=== PATIENT | female | born 1980 | race Caucasian/White ===

== ENCOUNTER 2018-11-29 10:33 | Emergency (ER) | payer OTHER ==
[~2018-11-29] VITALS: Ht 167.6 cm; Wt 63.6 kg
[2018-11-29 10:38] VITALS: Ht 167.6 cm; Wt 63.6 kg
[2018-11-29] MEDS ORDERED: TOPAMAX50 MG PO (10:40)
[2018-11-29] MEDS ORDERED: LAMICTAL100 MG PO (10:40)
[2018-11-29] MEDS ORDERED: VALIUM 2 MG TAB2 MG PO (10:41)
[2018-11-29] MEDS ORDERED: PROZAC20 MG PO (10:42)
[2018-11-29] MEDS ORDERED: TRIAZADONE PO (10:43)
[2018-11-29 11:21] LABS: BASOPHILS 0.2 % (0-2); HEMATOCRIT 39.4 % (36.0-48.0); HEMOGLOBIN 14.3 g/dL (12-16); IMMATURE GRANULOCYTES 0.2 % (0-5); LYMPHOCYTES 25.8 % (15-50); MCH 31.4 pg (26.0-34.0); MCHC 36.3 g/dL (31.0-37.0); MCV 86.6 fL (80.0-100.0); MEAN PLATELET VOLUME 9.9 fL (7.4-10.4); MONOCYTES 5.7 % (2-11); NEUTROPHILS 67.1 % (40-80); PLATELET COUNT 212 10x3/uL (130-400); RBC 4.55 10x6/uL (4.00-5.40); RDW 13.4 % (11.5-14.5); WBC 8.4 10x3/uL (4.8-10.8)
[2018-11-29 11:37] LABS: ANION GAP 16.2 mmol/L (8-16); BILIRUBIN - TOTAL 0.26 mg/dL (0.2-1.3); CALCIUM 8.4 mg/dL (8.5-10.1); CARBON DIOXIDE 22.9 mmol/L (21.0-32.0); CREATININE - SERUM 0.9 mg/dL (0.6-1.3); POTASSIUM - SERUM 4.1 mmol/L (3.5-5.1)
[2018-11-29 11:49] LABS: APPEARANCE CLEAR (CLEAR); BILIRUBIN NEGATIVE (NEGATIVE); COLOR YELLOW (YELLOW); GLUCOSE NEGATIVE (NEGATIVE); HCG URINE NEGATIVE (NEGATIVE); KETONE NEGATIVE (NEGATIVE); NITRITE NEGATIVE (NEGATIVE); PROTEIN NEGATIVE (NEGATIVE); SPECIFIC GRAVITY 1.015 (1.005-1.020)
[2018-11-29 11:52] LABS: UDS - AMPHET NEGATIVE QUAL (NEGATIVE); UDS - BARB NEGATIVE QUAL (NEGATIVE); UDS - BENZO POSITIVE QUAL (NEGATIVE); UDS - COCAINE NEGATIVE QUAL (NEGATIVE); UDS - OPIATE NEGATIVE QUAL (NEGATIVE); UDS - PCP NEGATIVE QUAL (NEGATIVE); UDS - THC NEGATIVE QUAL (NEGATIVE)
[2018-11-29] MEDS ORDERED: NEURONTIN800 MG PO (11:56)
[2018-11-29 13:02] VITALS: BP 122/62
== END 2018-11-29 13:40 ==
LOC: D.ER 10:33
PROVIDERS: Family Medicine
DX: F32.9 Major depressive disorder, single episode, unspecified (principal); R45.851 Suicidal ideations

== ENCOUNTER 2019-08-28 13:32 | Emergency (ER) | payer OTHER ==
[~2019-08-28] VITALS: Ht 167.6 cm; Wt 72.7 kg
[~2019-08-28 13:32] MED LIST: LAMICTAL100 MG PO; NEURONTIN800 MG PO; PROZAC20 MG PO; TOPAMAX50 MG PO; TRIAZADONE PO; VALIUM 2 MG TAB2 MG PO
[2019-08-28 13:41] VITALS: Ht 167.6 cm; Wt 72.7 kg
[2019-08-28] MEDS ORDERED: PROZAC20 MG PO (13:49)
[2019-08-28 14:01] LABS: APPEARANCE CLEAR (CLEAR); BILIRUBIN NEGATIVE (NEGATIVE); COLOR STRAW (YELLOW); GLUCOSE NEGATIVE (NEGATIVE); KETONE NEGATIVE (NEGATIVE); NITRITE NEGATIVE (NEGATIVE); PROTEIN NEGATIVE (NEGATIVE); UROBILINOGEN NORMAL (NORMAL)
[2019-08-28 14:04] LABS: UDS - AMPHET NEGATIVE QUAL (NEGATIVE); UDS - BARB NEGATIVE QUAL (NEGATIVE); UDS - BENZO POSITIVE QUAL (NEGATIVE); UDS - COCAINE NEGATIVE QUAL (NEGATIVE); UDS - OPIATE NEGATIVE QUAL (NEGATIVE); UDS - PCP NEGATIVE QUAL (NEGATIVE); UDS - THC NEGATIVE QUAL (NEGATIVE)
[2019-08-28 14:59] LABS: BASOPHILS 0.3 % (0-2); EOSINOPHILS 0.2 % (0-7); HEMATOCRIT 42.9 % (36.0-48.0); HEMOGLOBIN 14.9 g/dL (12-16); LYMPHOCYTES 20.6 % (15-50); MCHC 34.7 g/dL (31.0-37.0); MCV 92.1 fL (80.0-100.0); MEAN PLATELET VOLUME 9.5 fL (7.4-10.4); NEUTROPHILS 75.9 % (40-80); RBC 4.66 10x6/uL (4.00-5.40); RDW 12.6 % (11.5-14.5)
[2019-08-28 15:11] LABS: PLATELET COUNT 293 10x3/uL (130-400)
[2019-08-28 15:26] LABS: CALC OSMOLALITY 289 mosm/kg (275-300); CALCIUM 9.4 mg/dL (8.5-10.1); CARBON DIOXIDE 30.7 mmol/L (21.0-32.0); CHLORIDE - SERUM 108 mmol/L (98-107); CREATININE - SERUM 0.8 mg/dL (0.6-1.3); GLUCOSE 93 mg/dL (74-106); POTASSIUM - SERUM 4.2 mmol/L (3.5-5.1); SODIUM 146 mmol/L (136-145); UREA NITROGEN 11 mg/dL (7-18); eGFR NON AFRICAN AMERICAN 85 mL/min (90-120)
[2019-08-28 15:32] LABS: ALBUMIN 3.8 g/dL (3.4-5.0); ALKALINE PHOSPHATASE 87 U/L (46-116); ALT (SGPT) 39 U/L (10-68); BILIRUBIN - TOTAL 0.69 mg/dL (0.2-1.3); MAGNESIUM - SERUM 2.5 mg/dL (1.8-2.4); PROTEIN - SERUM 7.6 g/dL (6.4-8.2)
--- NOTE | 2019-08-28 18:43 | NUR ---
DR. PATRICK NOTIFIED AND SITTER ORDERED. SITTER IN LINE OF SIGHT. NOTIFIED CHARGE NURSE AND ATTENDING IN REGARDS TO ASSESSMENT FINDINGS. RESOURCES GIVEN TO PT AND SAFETY PLAN INTIATED BUT REFUSED TO SIGN.
--- NOTE | 2019-08-28 19:00 | NUR ---
DISCUSSED SAFETY PLAN WITH PT SHE VERBALIZED UNDERSTANDING AND SIGNED SAFETY PLAN.
[2019-08-29 04:05] VITALS: BP 100/55
== END 2019-08-29 04:05 ==
LOC: D.ER 13:32
PROVIDERS: Emergency Medicine
DX: F10.10 Alcohol abuse, uncomplicated (principal); Y90.5 Blood alcohol level of 100-119 mg/100 ml; F13.20 Sedative, hypnotic or anxiolytic dependence, uncomplicated; F43.9 Reaction to severe stress, unspecified